=== PATIENT | male | born 1965 | race Caucasian/White ===

== ENCOUNTER 2024-10-14 14:03 | Emergency (ER) | payer OTHER ==
[~2024-10-14] VITALS: Ht 175.3 cm; Wt 74.8 kg
[2024-10-14 14:07] VITALS: TEMP 98.3
[2024-10-14 14:15] VITALS: BP 154/82; O2SAT 98
[2024-10-14] MEDS ORDERED: THIAMINE HCL 100 MG TABLET ONE (14:41)
[2024-10-14] MEDS ORDERED: ONDANSETRON HCL/PF 4 MG/2 ML VIAL ONE (14:41)
[2024-10-14] MEDS ORDERED: MAG HYDROX/AL HYDROX/SIMETH 30 ML UDC ONE (14:41)
[2024-10-14] MEDS ORDERED: FOLIC ACID 1 MG TABLET ONE (14:41)
[2024-10-14] MEDS ORDERED: FAMOTIDINE (20 MG) 20 MG TABLET ONE (14:41)
[2024-10-14] MEDS: ONDANSETRON HCL/PF - ER 4 MG/2 ML VIAL IV ONE (15:00)
[2024-10-14] MEDS: IV NS 0.9% 1,000 ML BAG IV ONE (15:00)
[2024-10-14] MEDS: MAG HYDROX/AL HYDROX/SIMETH 30 ML UDC PO ONE (15:01)
[2024-10-14] MEDS: FAMOTIDINE (20 MG) 20 MG TABLET PO ONE (15:01)
[2024-10-14] MEDS: THIAMINE HCL 100 MG TABLET PO SCH (15:01)
[2024-10-14] MEDS: FOLIC ACID 1 MG TABLET PO SCH (15:01)
[2024-10-14 15:11] LABS: PLATELET COUNT (AUTO) 84 K/uL (150-450); RED BLOOD CELL COUNT(AUTO) 4.02 MIL/uL (4.5-6.0); RED CELL DISTRIBUTION WIDTH 13.0 % (11.5-15.0); WHITE BLOOD COUNT (AUTO) 3.8 K/uL (4.3-11.0)
[2024-10-14 15:18] LABS: CALCIUM, SERUM 8.0 mg/dL (8.5-10.1); CREATININE 0.6 mg/dL (0.6-1.3); SODIUM SERUM 132.0 mmol/L (136-145); UREA NITROGEN, BLOOD 8.0 mg/dL (7-18)
[2024-10-14 15:24] LABS: ASPARTATE AMINOTRANSFERASE 55.0 U/L (15-37); INR 1.04 (0.91-1.10); TOTAL PROTEIN, SERUM 7.0 g/dL (6.4-8.2)
[2024-10-14] MEDS: MULTIVITAMIN/LUTEIN/MINERALS 1 TAB PO SCH (15:30)
[2024-10-14 16:34] LABS: EOSINOPHILS % (MANUAL) 5 % (0-4); LYMPHOCYTES % (MANUAL) 27 % (16-48); MONOCYTES % (MANUAL) 8 % (0-11.0); NEUTROPHILS % (MANUAL) 60 (42-76); PLATELET ESTIMATE DECREASED
== END 2024-10-14 15:51 | disposition left against medical advice (07) ==
LOC: EDBD 14:13 → ER 14:13
DX: S00.81XA Abrasion of other part of head, initial encounter (principal); I10 Essential (primary) hypertension; F10.20 Alcohol dependence, uncomplicated; R51.9 Headache, unspecified; Z79.899 Other long term (current) drug therapy; Z86.2 Personal history of diseases of the blood and blood-forming organs and certain disorders involving the immune mechanism; W01.0XXA Fall on same level from slipping, tripping and stumbling without subsequent striking against object, initial encounter; Y93.89 Activity, other specified; Y92.89 Other specified places as the place of occurrence of the external cause; Y99.8 Other external cause status
CPT/HCPCS: 99285; 96374; 96361; 72125; 70450; 85027; 80048; 83690; 80076; 85007; 36415; 85730; 80320; J2405 ×2; G0480